=== PATIENT | male | born 1965 | race Caucasian/White ===

== ENCOUNTER 2023-11-22 09:45 | Emergency (ER) | payer OTHER ==
[2023-11-22] MEDS ORDERED: Morphine 4 MG/ML VIAL ONE (10:41)
[2023-11-22] MEDS ORDERED: Acetaminophen 500 MG TAB ONE (10:41)
[2023-11-22] MEDS ORDERED: Ketorolac Tromethamine 30 MG (1 mL) VIAL ONE (10:42)
[2023-11-22] MEDS ORDERED: Ondansetron PF 4 MG/2 ML Vial ONE (10:42)
== END 2023-11-22 11:53 ==
LOC: EEVIPCON 09:45 → EDBD 09:45 → ERS 09:45
DX: M54.2 Cervicalgia (principal); G89.29 Other chronic pain
CPT/HCPCS: 72125; 96374; 96375; J1885; J2270; J2405

== ENCOUNTER 2023-12-27 16:13 | Inpatient (IN) | payer OTHER ==
[~2023-12-27 16:13] MED LIST: Iopamidol-370 76% 500 ML MDV (1 ML CHARGE) ONE
[2023-12-27] MEDS ORDERED: Sodium Chloride 0.9% 100 ML ONE (16:50)
[2023-12-27] MEDS ORDERED: Cefepime 2 GM VIAL ONE (16:50)
[2023-12-27] MEDS ORDERED: Ketorolac Tromethamine 30 MG (1 mL) VIAL ONE (16:50)
[2023-12-27 17:08] LABS: #Eosinphils 0.3 thou/uL (0.0-0.7); #Monocytes 1.2 thou/uL (0.11-0.59); #Neutrophils 8.1 thou/uL (1.40-6.50); %Basophils 0.3 % (0.0-1.0); %Eosinophils 2.6 % (0.0-10.0); %Monocytes 10.3 % (0.0-10.0); %Neutrophils 71.5 % (42.0-75.0); Hematocrit 32.2 % (42.0-52.0); Hemoglobin 12.1 g/dL (14.0-18.0); Mean Corpuscular HGB CONC 37.6 g/dL (32.0-36.0); Mean Corpuscular Hemoglobin 31.3 pg (27.0-31.0); Mean Corpuscular Volume 83.2 fl (78.0-98.0); Mean Platelet Volume 10.1 fL (7.4-10.4); Platelet Count 215 10x3/uL (130-400); RBC Distribution Width 11.9 % (11.5-14.5); Red Blood Cell (RBC) Count 3.87 mill/uL (4.70-6.10); White Blood Cell (WBC) Count 11.4 10x3/uL (4.8-10.8)
[2023-12-27 17:39] LABS: Bacteria/HPF None Seen HPF (None Seen); Bilirubin Negative (Negative); Blood, Urine Negative (Negative); CAUTI Indications for Culture Pelvic or flank pain; Clarity Clear (Clear); Glucose, Urine (Dipstick) Normal (Negative); Ketone, Urine Negative (Negative); Leukocyte Negative Leu/uL (Negative); Nitrite Negative (Negative); Protein, Urine (Dipstick) Negative (Neg-Trace); RBC/HPF None Seen HPF (0-3); Specific Gravity, Urine 1.013 (1.002-1.036); Squamous Epithelial None Seen HPF (0-3); Urobilinogen Normal mg/dL (Less than 2); WBC/HPF None Seen HPF (0-3)
[2023-12-27 17:40] LABS: Sperm/HPF Rare HPF (None Seen)
[2023-12-27 17:41] LABS: Urine Culture Reflex No No
[2023-12-27 17:49] LABS: ALT (SGPT) 7 U/L (8-55); AST (SGOT) 16 U/L (5-34); Albumin 4.2 g/dL (3.5-5.0); Alkaline Phosphatase 59 U/L (40-110); Anion Gap 11 mmol/L (10-20); BUN (Urea Nitrogen) 9 mg/dL (8.4-25.7); Bilirubin, Total 0.7 mg/dL (0.2-1.2); Calc. Creatinine Clearance 0 mL/min (70-130); Calcium 8.8 mg/dL (7.8-10.44); Carbon Dioxide 23 mmol/L (22-29); Chloride 92 mmol/L (98-107); Estimated GFR 104; Globulin 2.6 g/dL (2.4-3.5); Glucose 84 mg/dL (70-105); Potassium 3.7 mmol/L (3.5-5.1); Protein, Total 6.8 g/dL (6.0-8.3); Sodium 122 mmol/L (136-145)
[2023-12-27] MEDS ORDERED: Vancomycin 1 GM/200 ML (FROZEN) BAG ONE (18:07)
[2023-12-27] MEDS ORDERED: Ondansetron PF 4 MG/2 ML Vial IVP PRN ×2 (20:15→20:37)
[2023-12-27] MEDS ORDERED: Ondansetron ODT 4 MG TAB SL PRN (20:15)
[2023-12-27] MEDS ORDERED: Acetaminophen 325 MG TAB PO PRN (20:15)
[2023-12-27] MEDS ORDERED: Ondansetron ODT 4 MG TAB PO PRN (20:37)
[2023-12-27 21:44] LABS: Anion Gap 10 mmol/L (10-20); BUN (Urea Nitrogen) 9 mg/dL (8.4-25.7); Calc. Creatinine Clearance 0 mL/min (70-130); Calcium 8.8 mg/dL (7.8-10.44); Carbon Dioxide 27 mmol/L (22-29); Chloride 92 mmol/L (98-107); Estimated GFR 103; Glucose 105 mg/dL (70-105); Potassium 3.3 mmol/L (3.5-5.1); Sodium 126 mmol/L (136-145)
[2023-12-27 22:31] VITALS: BMI 30.4
[2023-12-27] MEDS: FLU VACC QS2023-24(6MOS UP)/PF 60 MCG/0.5 ML SYRINGE IM ONE (23:23)
[2023-12-27] MEDS: Ketorolac Tromethamine 30 MG (1 mL) VIAL IVP PRN (23:50)
[2023-12-27] MEDS: Potassium Chloride 20 MEQ TAB PO SCH (23:51)
[2023-12-28] MEDS: Vancomycin (BATCH) 1.75 GM in Premix 1 BAG IVPB SCH (01:57)
[2023-12-28] MEDS: Cefepime 1 GM in Sodium Chloride 0.9% 100 ML IVPB SCH (05:04)
[2023-12-28 06:07] LABS: #Eosinphils 0.2 thou/uL (0.0-0.7); #Monocytes 0.7 thou/uL (0.11-0.59); #Neutrophils 5.7 thou/uL (1.40-6.50); %Basophils 0.5 % (0.0-1.0); %Eosinophils 2.8 % (0.0-10.0); %Lymphocytes 16.4 % (21.0-51.0); %Monocytes 8.7 % (0.0-10.0); %Neutrophils 71.2 % (42.0-75.0); Hematocrit 32.2 % (42.0-52.0); Hemoglobin 11.7 g/dL (14.0-18.0); Mean Corpuscular HGB CONC 36.3 g/dL (32.0-36.0); Mean Corpuscular Hemoglobin 31.1 pg (27.0-31.0); Mean Corpuscular Volume 85.6 fl (78.0-98.0); Mean Platelet Volume 10.2 fL (7.4-10.4); Platelet Count 206 10x3/uL (130-400); RBC Distribution Width 11.9 % (11.5-14.5); Red Blood Cell (RBC) Count 3.76 mill/uL (4.70-6.10)
[2023-12-28 06:40] LABS: Anion Gap 12 mmol/L (10-20); BUN (Urea Nitrogen) 8 mg/dL (8.4-25.7); Calc. Creatinine Clearance 142 mL/min (70-130); Calcium 8.7 mg/dL (7.8-10.44); Carbon Dioxide 23 mmol/L (22-29); Chloride 98 mmol/L (98-107); Estimated GFR 105; Glucose 83 mg/dL (70-105); Potassium 4.1 mmol/L (3.5-5.1); Sodium 129 mmol/L (136-145)
[2023-12-28 08:35] LABS: Hemoglobin A1c 4.8 % (4.0-6.0)
[2023-12-28] MEDS: carBAMazepine 200 MG TAB PO SCH (08:54)
[2023-12-28] MEDS: Aripiprazole 10 MG TAB PO SCH (08:54)
[2023-12-28] MEDS ORDERED: Citalopram 10 MG TAB PO SCH (09:00)
[2023-12-28] MEDS ORDERED: Enoxaparin 40 MG (0.4 mL) SYRINGE SC SCH (09:00)
[2023-12-28] MEDS ORDERED: Acetaminophen 500 MG TAB ONE (13:50)
[2023-12-28] MEDS ORDERED: hydrALAZINE 25 MG TAB PO PRN (15:25)
[2023-12-28] MEDS ORDERED: fentaNYL PF 100 MCG/2 ML SYRINGE ONE (15:34)
[2023-12-28] MEDS ORDERED: PROPOFOL 20 ML ONE (15:34)
[2023-12-28] MEDS ORDERED: Lidocaine 1% PF 5 ML VIAL ONE (15:34)
[2023-12-28] MEDS ORDERED: Ondansetron PF 4 MG/2 ML Vial ONE (15:35)
[2023-12-28] MEDS ORDERED: Dexamethasone 20 MG/5 ML VIAL ONE (15:35)
[2023-12-28] MEDS ORDERED: ePHEDrine Sulfate 50 MG/10 ML VIAL ONE (16:22)
[2023-12-28] MEDS ORDERED: PACU-Morphine 4MG/ML VIAL SLOW IVP PRN (16:38)
[2023-12-28] MEDS ORDERED: Ondansetron HCl/PF 4 MG/2 ML Vial IVP PRN (16:38)
[2023-12-28] MEDS ORDERED: HYDROmorphone 2 MG/ML VIAL SLOW IVP PRN (16:38)
[2023-12-28] MEDS ORDERED: Promethazine HCl 25 MG/ML VIAL IM PRN (16:38)
[2023-12-28] MEDS ORDERED: fentaNYL 50 mcg/mL 1 mL Vial ONE (16:58)
[2023-12-28] MEDS: Cefepime 2 GM in Sodium Chloride 0.9% 100 ML IVPB SCH (18:10)
[2023-12-28 18:45] LABS: Anion Gap 11 mmol/L (10-20); BUN (Urea Nitrogen) 6 mg/dL (8.4-25.7); Calc. Creatinine Clearance 145 mL/min (70-130); Calcium 9.1 mg/dL (7.8-10.44); Carbon Dioxide 24 mmol/L (22-29); Chloride 99 mmol/L (98-107); Estimated GFR 106; Glucose 102 mg/dL (70-105); Sodium 130 mmol/L (136-145)
[2023-12-29 01:52] LABS: Vancomycin, Trough 11.7 ug/mL
[2023-12-29 05:27] LABS: #Monocytes 0.8 thou/uL (0.11-0.59); #Neutrophils 4.6 thou/uL (1.40-6.50); %Basophils 0.3 % (0.0-1.0); %Eosinophils 0.5 % (0.0-10.0); %Lymphocytes 14.4 % (21.0-51.0); %Monocytes 12.6 % (0.0-10.0); %Neutrophils 71.9 % (42.0-75.0); Hematocrit 30.2 % (42.0-52.0); Mean Corpuscular HGB CONC 36.4 g/dL (32.0-36.0); Mean Corpuscular Hemoglobin 31.5 pg (27.0-31.0); Mean Corpuscular Volume 86.5 fl (78.0-98.0); Mean Platelet Volume 10.1 fL (7.4-10.4); Platelet Count 222 10x3/uL (130-400); RBC Distribution Width 12.1 % (11.5-14.5); Red Blood Cell (RBC) Count 3.49 mill/uL (4.70-6.10); White Blood Cell (WBC) Count 6.5 10x3/uL (4.8-10.8)
[2023-12-29 05:52] LABS: Anion Gap 10 mmol/L (10-20); BUN (Urea Nitrogen) 8 mg/dL (8.4-25.7); Calc. Creatinine Clearance 163 mL/min (70-130); Calcium 8.7 mg/dL (7.8-10.44); Carbon Dioxide 24 mmol/L (22-29); Chloride 101 mmol/L (98-107); Estimated GFR 110; Glucose 110 mg/dL (70-105); Potassium 4.1 mmol/L (3.5-5.1); Sodium 131 mmol/L (136-145)
[2023-12-29] MEDS: Acetaminophen 325 MG TAB PO PRN (06:16)
[2023-12-29] MEDS ORDERED: Polyethylene Glycol 3350 17 GM Packet PO PRN (13:19)
[2023-12-29] MEDS: Ketorolac Tromethamine 30 MG (1 mL) VIAL IVP PRN (15:00)
[2023-12-29] MEDS: cefTRIAXone\\ROCEPHIN 2 GM in Sodium Chloride 0.9% 100 ML IVPB SCH (16:47)
[2023-12-29] MEDS: Docusate 100 MG CAP PO SCH (19:59)
[2023-12-29] MEDS: Famotidine 20 MG TAB PO SCH (19:59)
[2023-12-30 04:36] LABS: #Basophils 0.1 thou/uL (0.0-0.2); #Eosinphils 0.3 thou/uL (0.0-0.7); #Monocytes 0.6 thou/uL (0.11-0.59); #Neutrophils 2.9 thou/uL (1.40-6.50); %Basophils 0.9 % (0.0-1.0); %Eosinophils 4.3 % (0.0-10.0); %Lymphocytes 34.5 % (21.0-51.0); %Monocytes 9.9 % (0.0-10.0); %Neutrophils 49.9 % (42.0-75.0); Hematocrit 31.5 % (42.0-52.0); Hemoglobin 11.1 g/dL (14.0-18.0); Mean Corpuscular HGB CONC 35.2 g/dL (32.0-36.0); Mean Corpuscular Hemoglobin 31.1 pg (27.0-31.0); Mean Corpuscular Volume 88.2 fl (78.0-98.0); Mean Platelet Volume 10.1 fL (7.4-10.4); Platelet Count 235 10x3/uL (130-400); RBC Distribution Width 12.2 % (11.5-14.5); Red Blood Cell (RBC) Count 3.57 mill/uL (4.70-6.10); White Blood Cell (WBC) Count 5.8 10x3/uL (4.8-10.8)
[2023-12-30 04:51] LABS: Anion Gap 10 mmol/L (10-20); BUN (Urea Nitrogen) 9 mg/dL (8.4-25.7); Calc. Creatinine Clearance 149 mL/min (70-130); Calcium 8.5 mg/dL (7.8-10.44); Carbon Dioxide 27 mmol/L (22-29); Chloride 102 mmol/L (98-107); Estimated GFR 107; Glucose 81 mg/dL (70-105); Potassium 4.1 mmol/L (3.5-5.1); Sodium 135 mmol/L (136-145)
[2023-12-30] MEDS: HYDROcodone/Acetaminophen 5/325 mg Tablet PO PRN (10:24)
[2023-12-30] MEDS: Senokot S 8.6-50 MG TAB PO SCH (20:10)
[2023-12-31 08:09] VITALS: BP 155/91; TEMP 98.9
== END 2023-12-31 11:31 | disposition home or self-care (01) | DRG 603 ==
LOC: ERS 16:13 → EEVIPCON 19:56 → T4-A 19:56
PROVIDERS: ADMIT Internal Medicine; ATTEND Internal Medicine
PROC: 0J980ZZ Drainage of Abdomen Subcutaneous Tissue and Fascia, Open Approach (ICD-10-PCS; principal; 2023-12-28)
DX: L03.311 Cellulitis of abdominal wall (principal); E87.1 Hypo-osmolality and hyponatremia; L02.211 Cutaneous abscess of abdominal wall; Z88.5 Allergy status to narcotic agent; Z79.899 Other long term (current) drug therapy; F41.9 Anxiety disorder, unspecified; I10 Essential (primary) hypertension; F32.A Depression, unspecified; Z98.890 Other specified postprocedural states
CPT/HCPCS: 36415; 74177; 80048; 80053; 80202; 81001; 82533; 83036; 83605; 83930; 83935; 84300; 84443; 84550; 85025; 87040; 87070; 87077; 87186; 87205; 96365; 96367; 96375; 97139; J0692; J0696; J1100; J1885; J2405; J2704; J3010; J3370; J3370-JW; J3490; Q9967

== ENCOUNTER 2024-01-20 12:25 | Emergency (ER) | payer OTHER ==
[2024-01-20] MEDS ORDERED: Morphine 4 MG/ML VIAL ONE (13:06)
[2024-01-20] MEDS ORDERED: Lidocaine 1% PF 5 ML VIAL ONE ×2 (13:06→13:09)
[2024-01-20 13:21] LABS: Bacteria/HPF None Seen HPF (None Seen); Bilirubin Negative (Negative); Blood, Urine Negative (Negative); CAUTI Indications for Culture Pelvic or flank pain; Clarity Clear (Clear); Glucose, Urine (Dipstick) Normal (Negative); Ketone, Urine Negative (Negative); Leukocyte Negative Leu/uL (Negative); Nitrite Negative (Negative); Protein, Urine (Dipstick) Negative (Neg-Trace); RBC/HPF 0-3 HPF (0-3); Specific Gravity, Urine 1.005 (1.002-1.036); Squamous Epithelial None Seen HPF (0-3); Urobilinogen Normal mg/dL (Less than 2); WBC/HPF 0-3 HPF (0-3)
[2024-01-20 13:24] LABS: Urine Culture Reflex No No
== END 2024-01-20 14:41 | disposition home or self-care (01) ==
LOC: ERS 12:25 → EEVIPCON 12:25 → ERS 14:41
DX: L02.215 Cutaneous abscess of perineum (principal); I10 Essential (primary) hypertension
CPT/HCPCS: 56405; 81001; 96372; J2270